=== PATIENT | male | born 1980 | race Caucasian/White ===

== ENCOUNTER 2025-03-12 01:13 | Emergency (ER) | payer OTHER ==
[~2025-03-12] VITALS: Ht 182.9 cm; Wt 88.6 kg
[2025-03-12 01:19] VITALS: BP 162/105; PULSE 115; RESP 18; TEMP 98.4; O2SAT 99
== END 2025-03-12 01:49 | disposition home or self-care (01) ==
LOC: ER 01:14
DX: F99 Mental disorder, not otherwise specified (principal); R45.1 Restlessness and agitation
CPT/HCPCS: 99281